=== PATIENT | male | born 1945 | race Caucasian/White ===

== ENCOUNTER 2022-01-03 08:51 | Emergency (ER) | payer MEDICARE, OTHER ==
[2022-01-03] MEDS ORDERED: Albuterol/Ipratropium 3.0-0.5 MG/3 ML Neb Soln NEB ONE ×2 (09:11→12:00)
[2022-01-03] MEDS ORDERED: Aspirin 81 MG Tab.Chew PO ONE (09:15)
[2022-01-03] MEDS ORDERED: Nitroglycerin 0.4 MG Tab.SL SL ONE (10:35)
[2022-01-03] MEDS: Potassium Chloride 10 MEQ in Premix Bag 1 BAG IV SCH ×2 (10:45→11:48)
[2022-01-03] MEDS ORDERED: Furosemide 40 MG/4 ML VIAL ONE (10:47)
[2022-01-03] MEDS ORDERED: Metoprolol Tartrate 50 MG Tab PO ONE (12:21)
[2022-01-03] MEDS ORDERED: Apixaban 2.5 MG Tab PO ONE (12:21)
[2022-01-03] MEDS ORDERED: methylPREDNISolone Sodium Succinate 125 MG/2 ML SDV IVPUSH ONE (13:33)
[2022-01-03] MEDS ORDERED: Furosemide 40 MG/4 ML VIAL IVPUSH ONE (13:33)
[2022-01-04] MEDS ORDERED: Furosemide 40 MG/4 ML VIAL IVPUSH ONE (10:39)
== END 2022-01-03 14:25 | disposition swing bed (61) ==
LOC: JD.ED 08:51
DX: I11.0 Hypertensive heart disease with heart failure (principal); I50.9 Heart failure, unspecified; J44.1 Chronic obstructive pulmonary disease with (acute) exacerbation; Z88.8 Allergy status to other drugs, medicaments and biological substances; Z79.899 Other long term (current) drug therapy; Z79.01 Long term (current) use of anticoagulants
CPT/HCPCS: 36415; 71045; 80053; 81003; 83605; 83880; 84484; 85025; 85610; 85730; 87040; 94640; 96365; 96366; 96375; 96376; 99285; A9270; J1940; J2930; J3480; J7620-GY